=== PATIENT | male | born 1965 | race Caucasian/White ===

== ENCOUNTER 2018-11-01 10:33 | Emergency (ER) | payer OTHER ==
[2018-11-01] MEDS ORDERED: NEBI5TAB PO (10:46)
[2018-11-01] MEDS ORDERED: ROSU10TA PO (10:46)
--- NOTE | 2018-11-01 11:12 | ER Report ---
History and Physical Time Seen By MD: 11:01 Hx. of Stated Complaint: presents with lower abd pain that began suddently 3 hrs ago. Denies n/v/d. BM x 2 this am. HPI/ROS CHIEF COMPLAINT: Abdominal pain since this morning HISTORY OF PRESENT ILLNESS: 53-year-old male awoke this morning and is been fasting since 7 PM last night when he had a steak dinner. No resource ice. The pain is described as epigastric in her wraps around from the left to the right side. Never had this before. Does not radiate to the back or up or down. No chest pain. Patient did not have breakfast and he walked to the gym and before started excising at the gym he started having this abdominal pain. He did have a red oldest prior to getting to the gym. Denies nausea, vomiting, diarrhea, or constipation. Denies having fevers. He is a little clammy. Patient is allergic to sulfa. His medications include 81 mg of aspirin, by Benge milligram a day, and Crestor. Illnesses include hypertension and hyperlipidemia. Social patient is limited with significant other for a number of years and he is a nonsmoker. He drinks beer on Saturday and Saturday and Saturday drugs. REVIEW OF SYSTEMS: Gen.: Other than abdominal pain which is mild to moderate he is fine. HEENT: No sore throat, sinus pressure pain, visual disturbances or headaches Respiratory: No cough, no dyspnea. Cardiovascular: No chest pain, no palpitations. Gastrointestinal: No nausea vomiting diarrhea constipation but he does have, pain that started after he was walking to the gym this morning. It is epigastric. Musculoskeletal: No complaints Neurologic no complaints Remainder of the 14 system rev: Yes Allergies: Coded Allergies: Sulfa (Sulfonamide Antibiotics) (Verified Allergy, Unknown, 11/01/18) Home Meds Reported Medications Rosuvastatin Calcium (CRESTOR) 10 Mg Tab, 10 MG PO QDAY, #5 TAB 11/01/18 Nebivolol Hcl (BYSTOLIC) 5 Mg Tablet, 10 MG PO QDAY 11/01/18 Past Medical/Surgical History See past medical history any history of present illness dictation. Reviewed Nurses Notes: Yes Smoking Status: Unknown if Ever Smoked Hx Alcohol Use: Yes Constitutional Vital Sign - Last 24 Hours 11/01/18 11/01/18 11/01/18 10:37 11:38 13:04 Temp 98.1 Pulse 80 78 74 Resp 18 18 16 B/P (MAP) 173/103 143/92 (109) 145/84 (104) Pulse Ox 94 99 98 O2 Delivery Room Air Room Air Room Air Physical Exam Gen. well-developed well-nourished apparent distress. He is a little clammy but he got that from his walk. The abdominal pain is mild. HEENT: TMs are clear, oropharynx is clear, PERRLA EOMI negative anterocervical adenopathy Lungs: Clear to auscultation Cor: Without gallops, murmurs or rubs were rate and rhythm good radial pulsa tions equal and symmetric Abdomen: Good bowel sounds and soft. Negative Easton sign. No rebound guarding or rigidity. Patient has epigastric tenderness does mild and then with just mild left and right upper quadrant tenderness. Extremities: No edema cyanosis or clubbing Neuro cranial nerves II-12 grossly intact: Gait and station is appropriate normal Medical Decision Making Data Points Result Diagram: 11/01/18 1038 11/01/18 1038 Laboratory Hematology Test 11/01/18 10:38 White Blood Count 6.5 k/uL (4.5-11.0) Red Blood Count 6.09 M/uL (4.00-5.60) H Hemoglobin 18.0 g/dL (14.0-18.0) Hematocrit 52.0 % (42.0-52.0) Mean Corpuscular Volume 85.3 fL (80.0-96.0) Mean Corpuscular Hemoglobin 29.5 pg (26.0-33.0) Mean Corpuscular Hemoglobin Concent 34.6 g/dL (32.0-36.0) Red Cell Distribution Width 15.8 % (11.5-14.5) H Platelet Count 173 K/uL (150-450) Mean Platelet Volume 9.5 fL (7.2-11.1) Neutrophils (%) (Auto) 62.1 % (39.4-72.5) Lymphocytes (%) (Auto) 27.0 % (17.6-49.6) Monocytes (%) (Auto) 9.2 % (4.1-12.4) Eosinophils (%) (Auto) 1.2 % (0.4-6.7) Basophils (%) (Auto) 0.5 % (0.3-1.4) Nucleated RBC Relative Count (auto) 0.1 /100WBC Neutrophils # (Auto) 4.0 K/uL (2.0-7.4) Lymphocytes # (Auto) 1.7 K/uL (1.3-3.6) Monocytes # (Auto) 0.6 K/uL (0.3-1.0) Eosinophils # (Auto) 0.1 K/uL (0.0-0.5) Basophils # (Auto) 0.0 K/uL (0.0-0.1) Nucleated RBC Absolute Count (auto) 0.01 K/uL Chemistry Test 11/01/18 10:38 Sodium Level 137 mmol/L (137-145) Potassium Level 3.9 mmol/L (3.5-5.0) Chloride Level 100 mmol/L (98-107) Carbon Dioxide Level 27 mmol/L (22-30) Blood Urea Nitrogen 16 mg/dl (9-21) Creatinine 1.00 mg/dl (0.66-1.25) Glomerular Filtration Rate Calc > 60.0 Random Glucose 101 mg/dl (75-110) Calcium Level 9.0 mg/dl (8.4-10.2) Total Bilirubin 1.1 mg/dl (0.2-1.3) Aspartate Amino Transf (AST/SGOT) 63 U/L (0-35) Alanine Aminotransferase (ALT/SGPT) 30 U/L (0-56) Alkaline Phosphatase 58 U/L (0-126) Total Protein 7.6 g/dl (6.3-8.2) Albumin 4.7 g/dl (3.5-5.0) Amylase Level 92 U/L (0-110) Lipase 59 U/L (23-300) Urinalysis Test 11/01/18 10:45 Urine Color Yellow Urine Clarity Clear Urine pH 7.0 pH (4.8-9.5) Urine Specific [place] 1.018 Urine Protein Negative mg/dL (NEGATIVE) Urine Glucose (UA) Negative mg/dL (NEGATIVE) Urine Ketones Negative mg/dL (NEGATIVE) Urine Blood Negative (NEGATIVE) Urine Nitrite Negative (NEGATIVE) Urine Bilirubin Negative (NEGATIVE) Urine Urobilinogen Negative mg/dL (0.2-1.9) Urine Leukocyte Esterase Negative (NEGATIVE) Urine RBC None /HPF (0-2/HPF) Urine WBC None /HPF (0-5/HPF) Urine Squamous Epithelial Cells None /LPF (</=FEW) Urine Bacteria Negative /HPF (NONE-FEW) Urine Mucus None /HPF (NONE-FEW) EKG/Imaging Imaging KUB impression: 1. Negative KUB for acute intra-abdominal pathology. 2. Negative chest. 3. 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 ED Course/Re-evaluation ED Course Patient complains of epigastric pain that started this morning after going to work out. His epigastric but does go right to left. CBC, CMP, amylase lipase, and UA are essentially normal. KUB of the abdomen is normal. I believe the patient's car gastritis and is given a liter of and S and famotidine 20 mg IV and he feels somewhat improved. I'll discharge him home on Pepcid AC twice a day for a week and he should be fine. Decision to Disposition Date: Nov 01, 2018 Decision to Disposition Time: 13:28 Depart Departure Latest Vital Signs Vital Signs Date Time Temp Pulse Resp B/P (MAP) Pulse Ox O2 Delivery O2 Flow Rate FiO2 11/01/18 13:04 74 16 145/84 (104) 98 Room Air 11/01/18 10:37 98.1 Impression: Primary Impression: Gastritis Condition: Condition Unchanged Disposition: HOME OR SELF-CARE Patient Instructions: Diet for Stomach Ulcers and Gastritis (ED), Gastritis (E D) Additional Instructions: Pepcid AC 20 mg twice a day for 10 days. Be careful with your diet and no more skipping meals. Stay hydrated. Follow-up through any questions or problems. GUILLAUME SAGASTUME MD Nov 01, 2018 11:12
[2018-11-01] MEDS ORDERED: NS(*) 0.9% 1000 ML BAG 1,000 ML IV ONE (11:15)
[2018-11-01 11:23] LABS: PLATELET COUNT, AUTOMATED 173 K/uL (150-450)
[2018-11-01] MEDS ORDERED: FAMOTIDINE 10 MG/ML SDV IVP ONE (12:20)
[2018-11-01] MEDS ORDERED: FAMOTIDINE(*) 20MG/50ML PREMIX 50 ML IVPB ONE (12:40)
--- NOTE | 2018-11-01 12:57 | RADIOLOGY IMAGING REPORT ---
FACILITY: [facility] [place]IENT NAME: Ahmet Duque : 1965 MR: [id number] V: [id number] EXAM DATE: ORDERING PHYSICIAN: GUILLAUME SAGASTUME TECHNOLOGIST: Location: [facility] - [place] Patient: Ahmet Duque : 1965 Visit/Account:[id number] Date of Sevice: 11/01/2018 ACUTE ABDOMEN SERIES 3 VIEW HISTORY: epigastric pain several hours Abdominal series. FINDINGS: Nonspecific bowel gas pattern. No obstructive change noted. No free air. No abdominal mass lesions. N o abnormal calcifications. Bony structures unremarkable other than mild lateralizing osteophytes in t he lumbar spine. Disc spaces relatively well-maintained. SI joints are unremarkable. Asymmetric left hip DJD changes with joint space narrowing and lateralizing osteophytes. The chest demonstrates no infiltrate consolidations or effusions. Cardiac and hilar structures are we ll-maintained. Bony structures unremarkable. IMPRESSION: 1. Negative KUB for acute intra-abdominal pathology. 2. Negative chest. 3. Moderately advanced DJD changes of the left hip Report Dictated By: Arnold Navas MD at 11/01/2018 12:46 PM Report E-Signed By: Arnold Navas MD at 11/01/2018 12:49 PM [id number]
[2018-11-01 14:07] VITALS: BP 139/77
== END 2018-11-01 14:09 | disposition home or self-care (01) ==
LOC: ER 11:10
DX: K29.70 Gastritis, unspecified, without bleeding (principal)
CPT/HCPCS: 74022; 81001; 82150; 83690; 85025; 96361; 96374; 99284; J7030; 82040; 82247; 82310; 82374; 82435; 82565; 82947; 84075; 84132; 84155; 84295; 84450; 84460; 84520